=== PATIENT | female | born 2005 | race Caucasian/White ===

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

== ENCOUNTER 2023-12-02 14:48 | Emergency (ER) | payer BC | END 2023-12-02 16:00 | disposition home or self-care (01) | LOC: JP.ED 14:48 | DX: S09.90XA Unspecified injury of head, initial encounter (principal); Z86.16 Personal history of COVID-19; W09.0XXA Fall on or from playground slide, initial encounter; Y93.19 Activity, other involving water and watercraft | CPT/HCPCS: 99283 ==